=== PATIENT | male | born 1965 | race Caucasian/White ===

== ENCOUNTER 2019-05-18 09:07 | Inpatient (IN) | payer OTHER ==
[2019-05-18] VITALS (14 sets, daily range): BP systolic 98–127; BP diastolic 60–74; PULSE 46–80; RESP 12–18; Ht 162.6 cm; Wt 67.7 kg
[~2019-05-18] VITALS: Ht 162.6 cm; Wt 67.7 kg
[~2019-05-18 09:07] MED LIST: ACETAMINOPHEN 500 MG TAB PO ONE; CEFAZOLIN 2 GM/50 ML (PMX) 50 ML IVPB ONE; FINA5TAB4 PO; OMEP40CA38 PO; TAMS-14 PO
[2019-05-18] MEDS: LACTATED RINGER'S 1,000 ML (ENTER RATE) IV SCH ×2 (10:03→16:32)
[2019-05-18] MEDS ORDERED: FENTAnyl 50 MCG/ML VIAL ONE (10:40)
[2019-05-18] MEDS ORDERED: PROPOFOL 40 ML ONE (10:40)
[2019-05-18] MEDS ORDERED: CEFAZOLIN 1 GM INJ ONE (10:40)
[2019-05-18] MEDS ORDERED: MIDAZOLAM 1 MG/ML 2 ML INJ ONE (10:40)
[2019-05-18] MEDS ORDERED: LIDOCAINE 2% (SDV) 5 ML INJ ONE (10:40)
[2019-05-18] MEDS ORDERED: ROCURONIUM 50 MG INJ ONE (10:40)
[2019-05-18] MEDS ORDERED: ONDANSETRON 4 MG INJ ONE (10:41)
[2019-05-18] MEDS ORDERED: FAMOTIDINE 20 MG INJ ONE (10:41)
[2019-05-18] MEDS ORDERED: OXYCODONE/ACETAMINOPHEN (5/325) TAB PO PRN ×2 (11:30)
[2019-05-18] MEDS ORDERED: LABETALOL HCL 20MG INJ IV PRN (11:30)
[2019-05-18] MEDS ORDERED: ONDANSETRON 4 MG INJ IV PRN ×2 (11:30→14:30)
[2019-05-18] MEDS ORDERED: FENTAnyl 50 MCG/ML VIAL IV PRN ×2 (11:30)
[2019-05-18] MEDS ORDERED: HYDROmorphONE 1 MG/5 ML IV SYRINGE IV PRN ×3 (11:30)
[2019-05-18] MEDS ORDERED: DIPHENHYDRAMINE 50 MG INJ IV PRN (11:30)
[2019-05-18] MEDS ORDERED: morphine 2 MG INJ IV PRN ×3 (11:30→14:30)
[2019-05-18] MEDS ORDERED: ALBUTEROL 0.083% (NEB) 2.5 MG/3 ML AMP HHN PRN (11:30)
[2019-05-18] MEDS ORDERED: EPHEDrine 25 MG/5 ML SYG IV PRN (11:30)
[2019-05-18] MEDS ORDERED: ATROPINE 1 MG/10 ML SYRINGE IV PRN (11:30)
[2019-05-18] MEDS ORDERED: LEVALBUTEROL (NEB) 0.63 MG/3 ML AMP HHN PRN (11:30)
[2019-05-18] MEDS ORDERED: KETOROLAC 15 MG INJ IV PRN (11:30)
[2019-05-18] MEDS ORDERED: hydrALAzine 20 MG INJ IV PRN (11:30)
[2019-05-18] MEDS ORDERED: BUPIVACAINE 0.25% (MPF) 30 ML INJ ONE (12:11)
[2019-05-18] MEDS ORDERED: LIDOCAINE 1%/EPI 30 ML INJ ONE ×2 (12:11→13:43)
[2019-05-18] MEDS ORDERED: GENTAMICIN 80 MG/NS (PMX) 50 ML IVPB STA (12:22)
[2019-05-18] MEDS ORDERED: EPHEDrine 25 MG/5 ML SYG ONE (13:17)
[2019-05-18] MEDS ORDERED: BUPIVACAINE 0.5% (SDV) 30 ML INJ ONE (13:44)
[2019-05-18] MEDS ORDERED: KETOROLAC 30 MG INJ ONE (13:59)
[2019-05-18] MEDS ORDERED: LACTATED RINGER'S 1,000 ML IV SCH ×2 (14:11)
[2019-05-18] MEDS ORDERED: HYDROCODONE/APAP (5/325) TAB PO PRN ×2 (14:30)
[2019-05-18] MEDS: CEFAZOLIN 1 GM/50 ML (PMX) 50 ML IVPB SCH (18:25)
[2019-05-18] MEDS ORDERED: TAMSULOSIN (SR) 0.4 MG CAP PO SCH (21:00)
[2019-05-19] MEDS: CEFAZOLIN 1 GM/50 ML (PMX) 50 ML IVPB SCH ×3 (00:24→12:09)
[2019-05-19 03:09] VITALS: BP 101/57; PULSE 61; RESP 16
[2019-05-19] MEDS: KETOROLAC 30 MG INJ IV PRN ×2 (05:45→12:56)
[2019-05-19] MEDS: DIAZEPAM 5 MG TAB PO PRN ×2 (07:38→22:07)
[2019-05-19 08:01] VITALS: BP 94/53; PULSE 57; RESP 18
[2019-05-19 14:00] VITALS: BP 108/66; PULSE 50; RESP 17
[2019-05-19] MEDS ORDERED: traMADol 50 MG TAB PO PRN (14:30)
[2019-05-19] MEDS: metroNIDAZOLE 500 MG/NS (PMX) 100 ML IVPB SCH ×2 (16:02→22:07)
[2019-05-19] MEDS: CIPROFLOXACIN 500 MG TAB NGT SCH (17:31)
[2019-05-19 20:48] VITALS: BP 113/62; PULSE 56; RESP 18
[2019-05-19] MEDS: TAMSULOSIN (SR) 0.4 MG CAP PO SCH (22:08)
[2019-05-20] MEDS: MINERAL OIL 30ML CUP PO SCH ×4 (00:24→21:41)
[2019-05-20] MEDS: MAGNESIUM HYDROXIDE 30ML CUP PO SCH ×4 (00:24→21:41)
[2019-05-20] MEDS: KETOROLAC 30 MG INJ IV PRN ×2 (00:25→17:18)
[2019-05-20] MEDS ORDERED: D5W-0.45 NACL + KCL 20 MEQ 1,000 ML IV SCH (02:30)
[2019-05-20 02:34] VITALS: BP 95/51; PULSE 69; RESP 18
[2019-05-20] MEDS: METOCLOPRAMIDE 10 MG INJ IV SCH ×4 (03:35→21:52)
[2019-05-20] MEDS: CIPROFLOXACIN 500 MG TAB NGT SCH ×2 (06:21→17:17)
[2019-05-20] MEDS: metroNIDAZOLE 500 MG/NS (PMX) 100 ML IVPB SCH ×3 (06:22→21:40)
[2019-05-20 08:03] VITALS: BP 91/52; PULSE 54; RESP 19
[2019-05-20] MEDS: TAMSULOSIN (SR) 0.4 MG CAP PO SCH (08:28)
[2019-05-20] MEDS: traMADol 50 MG TAB PO PRN ×2 (11:50→23:07)
[2019-05-20] MEDS: DIAZEPAM 5 MG TAB PO PRN (14:04)
[2019-05-20 14:30] VITALS: BP 93/53; PULSE 61; RESP 18
[2019-05-20 20:00] VITALS: BP 108/59; PULSE 58; RESP 18
[2019-05-20] MEDS ORDERED: METOCLOPRAMIDE 10 MG INJ IV SCH (21:00)
[2019-05-20] MEDS: ALFUZOSIN 10 MG PO SCH (21:40)
[2019-05-20] MEDS ORDERED: PATIENT'S OWN MEDICATION PO SCH (22:00)
[2019-05-21 02:00] VITALS: BP 102/58; PULSE 67; RESP 18
[2019-05-21] MEDS: KETOROLAC 30 MG INJ IV PRN ×2 (06:01→16:30)
[2019-05-21] MEDS: METOCLOPRAMIDE 10 MG INJ IV SCH ×3 (06:02→21:02)
[2019-05-21] MEDS: metroNIDAZOLE 500 MG/NS (PMX) 100 ML IVPB SCH ×2 (06:02→14:43)
[2019-05-21] MEDS: CIPROFLOXACIN 500 MG TAB NGT SCH ×2 (06:02→17:30)
[2019-05-21] MEDS: MINERAL OIL 30ML CUP PO SCH ×2 (06:03→14:43)
[2019-05-21] MEDS: MAGNESIUM HYDROXIDE 30ML CUP PO SCH (06:03)
[2019-05-21 08:08] VITALS: BP 97/52; PULSE 54; RESP 17
[2019-05-21 14:00] VITALS: BP 100/51; PULSE 61; RESP 18
[2019-05-21 20:15] VITALS: BP 103/57; PULSE 52; RESP 20
[2019-05-21] MEDS: traMADol 50 MG TAB PO PRN (20:47)
[2019-05-21] MEDS: ALFUZOSIN 10 MG PO SCH (21:02)
[2019-05-21] MEDS: metroNIDAZOLE 500 MG TAB PO SCH (21:02)
[2019-05-22 02:15] VITALS: BP 104/57; PULSE 55; RESP 18
[2019-05-22] MEDS: metroNIDAZOLE 500 MG TAB PO SCH ×2 (05:54→14:19)
[2019-05-22] MEDS: CIPROFLOXACIN 500 MG TAB NGT SCH (05:54)
[2019-05-22] MEDS: METOCLOPRAMIDE 10 MG INJ IV SCH ×3 (05:55→21:01)
[2019-05-22 08:16] VITALS: BP 116/61; PULSE 50; RESP 18
[2019-05-22] MEDS ORDERED: MINERAL OIL 30ML CUP PO ONE (09:00)
[2019-05-22] MEDS: KETOROLAC 30 MG INJ IV PRN (12:59)
[2019-05-22 14:35] VITALS: BP 113/56; PULSE 66; RESP 18
[2019-05-22] MEDS: FINASTERIDE 5 MG TAB PO SCH (15:11)
[2019-05-22] MEDS: HYDROCORTISONE 25 MG SUPP PR SCH ×2 (17:40→21:00)
[2019-05-22 20:26] VITALS: BP 107/57; PULSE 57; RESP 18
[2019-05-22] MEDS: ALFUZOSIN (SR) 10 MG TAB PO SCH (21:00)
[2019-05-22] MEDS: ALFUZOSIN 10 MG PO SCH (21:02)
[2019-05-23 01:26] VITALS: BP 111/53; PULSE 60; RESP 19
[2019-05-23] MEDS: ALFUZOSIN 10 MG PO SCH (04:05)
[2019-05-23] MEDS: METOCLOPRAMIDE 10 MG INJ IV SCH ×3 (05:43→22:24)
[2019-05-23 07:53] VITALS: BP 100/60; PULSE 56; RESP 18
[2019-05-23] MEDS ORDERED: MINERAL OIL 30ML CUP PO ONE (09:00)
[2019-05-23] MEDS: FINASTERIDE 5 MG TAB PO SCH (09:00)
[2019-05-23] MEDS: HYDROCORTISONE 25 MG SUPP PR SCH (09:01)
[2019-05-23] MEDS: traMADol 50 MG TAB PO PRN (09:38)
[2019-05-23] MEDS: DIAZEPAM 5 MG TAB PO PRN (13:18)
[2019-05-23] MEDS: HYDROmorphONE 0.5 MG/0.5 ML SYG IV PRN ×2 (14:07→22:43)
[2019-05-23 14:24] VITALS: BP 132/76; PULSE 64; RESP 18
[2019-05-23 15:47] VITALS: PULSE 88
[2019-05-23] MEDS ORDERED: ACETAMINOPHEN 500 MG TAB PO PRN (16:00)
[2019-05-23 16:21] VITALS: PULSE 78
[2019-05-23] MEDS: PIPER-TAZO 3.375 GM IV (PMX) 100 ML IVPB SCH ×2 (17:44→23:56)
[2019-05-23 20:11] VITALS: BP 109/64; PULSE 75; RESP 19
[2019-05-23] MEDS: ALFUZOSIN (SR) 10 MG TAB PO SCH (20:37)
[2019-05-23] MEDS: MINERAL OIL 30ML CUP PO SCH (20:37)
[2019-05-23] MEDS: metroNIDAZOLE 500 MG/NS (PMX) 100 ML IVPB SCH (22:28)
[2019-05-24 02:00] VITALS: BP 101/54; PULSE 75; RESP 19
[2019-05-24] MEDS: PIPER-TAZO 3.375 GM IV (PMX) 100 ML IVPB SCH ×3 (05:36→17:22)
[2019-05-24] MEDS: METOCLOPRAMIDE 10 MG INJ IV SCH ×3 (05:36→21:59)
[2019-05-24] MEDS: metroNIDAZOLE 500 MG/NS (PMX) 100 ML IVPB SCH ×4 (06:08→21:59)
[2019-05-24 08:49] VITALS: BP 99/54; PULSE 71; RESP 18
[2019-05-24] MEDS: FINASTERIDE 5 MG TAB PO SCH (09:00)
[2019-05-24] MEDS: MINERAL OIL 30ML CUP PO SCH (09:00)
[2019-05-24] MEDS: D5W-0.45 NACL + KCL 20 MEQ 1,000 ML IV SCH ×2 (14:07)
[2019-05-24 14:52] VITALS: BP 108/63; PULSE 60; RESP 16
[2019-05-24 20:00] VITALS: BP 106/63; PULSE 55; RESP 18
[2019-05-24] MEDS: ALFUZOSIN (SR) 10 MG TAB PO SCH (21:59)
[2019-05-24] MEDS: HYDROmorphONE 0.5 MG/0.5 ML SYG IV PRN (21:59)
[2019-05-25] MEDS: PIPER-TAZO 3.375 GM IV (PMX) 100 ML IVPB SCH ×4 (00:11→18:33)
[2019-05-25 02:00] VITALS: BP 98/56; PULSE 60; RESP 18
[2019-05-25] MEDS ORDERED: LIDOCAINE 1% (MPF) 30 ML INJ ONE (07:49)
[2019-05-25 08:00] VITALS: BP 94/54; PULSE 61; RESP 18
[2019-05-25] MEDS ORDERED: ROCURONIUM 50 MG INJ ONE ×2 (08:42→10:17)
[2019-05-25] MEDS ORDERED: PROPOFOL 20 ML ONE (08:42)
[2019-05-25] MEDS ORDERED: FENTAnyl 50 MCG/ML VIAL ONE ×3 (08:42→11:07)
[2019-05-25] MEDS: FINASTERIDE 5 MG TAB PO SCH (09:00)
[2019-05-25] MEDS: MINERAL OIL 30ML CUP PO SCH (09:00)
[2019-05-25] MEDS ORDERED: METOCLOPRAMIDE 10 MG INJ ONE (09:05)
[2019-05-25] MEDS ORDERED: PHENYLephrine (100 MCG/ML) 10ML SYG ONE (09:05)
[2019-05-25] MEDS ORDERED: NEOMYC/POLYMYX/BACIT 30 GM OINT ONE (10:02)
[2019-05-25] MEDS ORDERED: BACITRACIN/POLYMYXIN 28.35 GM OINT TOP ONE (10:02)
[2019-05-25] MEDS ORDERED: SUGAMMADEX SODIUM 200 MG/2 ML VIAL IV ONE (10:15)
[2019-05-25] MEDS ORDERED: HYDROmorphONE 1 MG/5 ML IV SYRINGE IV ONE (10:40)
[2019-05-25] MEDS: HYDROmorphONE 0.5 MG/0.5 ML SYG IV PRN (13:00)
[2019-05-25 14:00] VITALS: BP 101/58; PULSE 61; RESP 16
[2019-05-25] MEDS: metroNIDAZOLE 500 MG/NS (PMX) 100 ML IVPB SCH ×2 (14:00→22:07)
[2019-05-25] MEDS: METOCLOPRAMIDE 10 MG INJ IV SCH ×2 (14:00→22:07)
[2019-05-25] MEDS: traMADol 50 MG TAB PO PRN (14:07)
[2019-05-25] MEDS: KETOROLAC 30 MG INJ IV PRN (15:10)
[2019-05-25 20:20] VITALS: BP 103/62; PULSE 63; RESP 18
[2019-05-25] MEDS: ALFUZOSIN (SR) 10 MG TAB PO SCH (21:00)
[2019-05-26] MEDS: PIPER-TAZO 3.375 GM IV (PMX) 100 ML IVPB SCH ×4 (00:27→17:23)
[2019-05-26 02:10] VITALS: BP 93/44; PULSE 55; RESP 18
[2019-05-26] MEDS: D5W-0.45 NACL + KCL 20 MEQ 1,000 ML IV SCH (05:40)
[2019-05-26] MEDS: METOCLOPRAMIDE 10 MG INJ IV SCH ×3 (05:41→22:14)
[2019-05-26] MEDS: metroNIDAZOLE 500 MG/NS (PMX) 100 ML IVPB SCH ×3 (06:36→22:14)
[2019-05-26 08:08] VITALS: BP 89/53; PULSE 56; RESP 19
[2019-05-26] MEDS: MINERAL OIL 30ML CUP PO SCH ×2 (08:23→20:24)
[2019-05-26] MEDS: FINASTERIDE 5 MG TAB PO SCH (08:23)
[2019-05-26 14:00] VITALS: BP 114/57; PULSE 59; RESP 17
[2019-05-26] MEDS: KETOROLAC 30 MG INJ IV PRN (15:03)
[2019-05-26 20:10] VITALS: BP 98/62; PULSE 62; RESP 20
[2019-05-26] MEDS: ALFUZOSIN (SR) 10 MG TAB PO SCH (20:24)
[2019-05-27] MEDS: PIPER-TAZO 3.375 GM IV (PMX) 100 ML IVPB SCH ×3 (00:06→13:06)
[2019-05-27 02:10] VITALS: BP 112/64; PULSE 55; RESP 18
[2019-05-27] MEDS: METOCLOPRAMIDE 10 MG INJ IV SCH ×2 (05:35→13:06)
[2019-05-27] MEDS: metroNIDAZOLE 500 MG/NS (PMX) 100 ML IVPB SCH ×2 (06:45→14:04)
[2019-05-27 08:26] VITALS: BP 102/57; PULSE 57; RESP 18
[2019-05-27] MEDS: FINASTERIDE 5 MG TAB PO SCH (08:28)
[2019-05-27] MEDS: MINERAL OIL 30ML CUP PO SCH ×2 (08:29→13:06)
[2019-05-27] MEDS: traMADol 50 MG TAB PO PRN (08:34)
[2019-05-27] MEDS: KETOROLAC 30 MG INJ IV PRN (14:17)
[2019-05-27 15:24] VITALS: BP 111/71; PULSE 63; RESP 17
== END 2019-05-27 17:00 | disposition home or self-care (01) | DRG 940 ==
LOC: SDS 09:07 → PP2 14:22 → SDS 14:22 → OBSVTOIN 05-19 16:11
PROC: 0D8R0ZZ Division of Anal Sphincter, Open Approach (ICD-10-PCS; principal; 2019-05-20)
PROC: 06BY0ZC Excision of Hemorrhoidal Plexus, Open Approach (ICD-10-PCS; 2019-05-20)
PROC: 0JQB0ZZ Repair Perineum Subcutaneous Tissue and Fascia, Open Approach (ICD-10-PCS; 2019-05-25)
DX: G89.18 Other acute postprocedural pain (principal); K91.840 Postprocedural hemorrhage of a digestive system organ or structure following a digestive system procedure; K62.5 Hemorrhage of anus and rectum; K91.30 Postprocedural intestinal obstruction, unspecified as to partial versus complete; T81.32XA Disruption of internal operation (surgical) wound, not elsewhere classified, initial encounter; E78.5 Hyperlipidemia, unspecified; K64.2 Third degree hemorrhoids; K64.1 Second degree hemorrhoids; K21.9 Gastro-esophageal reflux disease without esophagitis; N40.0 Benign prostatic hyperplasia without lower urinary tract symptoms; K64.4 Residual hemorrhoidal skin tags; N40.1 Benign prostatic hyperplasia with lower urinary tract symptoms; R33.8 Other retention of urine; K29.70 Gastritis, unspecified, without bleeding; K44.9 Diaphragmatic hernia without obstruction or gangrene; Y84.8 Other medical procedures as the cause of abnormal reaction of the patient, or of later complication, without mention of misadventure at the time of the procedure; Y92.230 Patient room in hospital as the place of occurrence of the external cause
CPT/HCPCS: 71045; 74018; 74019; 80048; 81001; 85014; 85018; 85025; 85610; 85730; 87086; 88304; 93005; A4310; G0378; J0690; J1170; J1580; J1885; J2250; J2370; J2405; J2543; J2765; J3010; J3480; J7120